=== PATIENT | female | born 1970 | race Caucasian/White ===

== ENCOUNTER → 2017-06-01 15:12 | Outpatient (CLI) | payer OTHER, SELFPAY ==
--- NOTE | 2017-06-01 15:15 | RAD_ITS ---
STUDY: X-RAY - RIGHT ANKLE REASON FOR EXAM: Female, 46 years old. Pain TECHNIQUE: 3 view(s) of the ankle. COMPARISON: 04/21/2017 FINDINGS: Metallic fixation plate and screws are seen within the distal fibula. Normal medial and lateral malleoli. Normal tibiotalar articulation and ankle mortise. There is a plantar calcaneal spur. The visualized subtalar, talonavicular, calcaneocuboid and tarsal articulations are normal. The soft tissue structures are unremarkable. RAD/Ankle min 3 Views IMPRESSION: Postoperative changes to the distal fibula. The orthopedic hardware is intact. Electronically Signed: Maicol Sutherland DO at 14:37 EST Tel , Service support ,
== END ==
PROVIDERS: Family Provider Family Medicine; PCP Family Medicine; Visit Provider Orthopaedic Surgery
DX: M25.571 Pain in right ankle and joints of right foot (principal)
CPT/HCPCS: 73610

== ENCOUNTER 2017-07-04 18:30 | Outpatient (RCR) | payer OTHER, SELFPAY ==
--- NOTE | 2017-06-08 08:46 | HP.PTEVAL ---
Patient's Visit Information NALINI STRANGE is a 46 year old F referred to Physical Therapy by DO MARITZA Rizvi with a diagnosis of Right ORIF ankle. Date of Evaluation: 06/08/17 Physical Therapist: Ariana Burnett - Visit Plan Frequency: 2x /Week Duration: 4 Weeks Plan: ORIF 04/21/17- WBAT- focus on rom and functional mobility - Subjective Subjective: Right ORIF of the ankle 04/21/[address] Floyd 10 days after she fell on the ice. Headed home after surgery with 2 story house- had a hard time getting around but is much better now. She is able to do the stairs one at a time. 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 Is back to driving. Was allowed to start walking a week ago without the boot- without since Tuesday. It hurts- but its more muscle tightness- dull and achy. Worst: 09/11 Agg: walking on it Eases: sitting, taking the pressure off Best: 04/13. Pain is located on the outside of the ankle- no radiating pain. No N/T in the toes. Sleep: not disturbed. Wears dress shoes or tennis shoes- no insert or orthotic. PMHx: HTN, DM. Meds: insulin, losartin, amlodopine. - Objective Posture: FH, RS. Gait: antalgic- decreased stance on the right LE- poor heel/toe strike secondary to decreased ROM. Stairs: asc/desc 8 non recip with 2 HR. Balance: WS but unable to SLS. HR/TR: HR- unable standing but can perform sitting, TR: able. Observation: moderate swelling around the lateral malleolus- mild redness along incision- no drainage or streaks (educated about infectioin- pt to call MD). ROM: DF: neutral, PF: 30 degrees, Inv: 10 degrees, Ever: 5 degrees pain with all motions. Strength: Ankle: 4-/5 in available range - Goals Goal 1:: Patient will be I with HEP and progression Goal Time Frame: 4-6 Weeks Goal 2:: Patient will ambulate >300 feet with a normalized gait pattern Goal Time Frame: 4-6 Weeks Goal 3:: Patient will demo full AROM of the right ankle Goal Time Frame: 4-6 Weeks Goal 4:: Patient will asc/desc 8 stairs recip with 1 HR Goal Time Frame: 4-6 Weeks Goal 5:: Patient will SLS for 10 seconds on the right without LOB - Rehabilitation Potential Physical Therapy Diagnosis: Patient presents with hypomobility- she has decreased ROM, strength and muscualar endurance leading to abnormal gait pattern and inability to perform ADL's. Rehabilitation Potential: Good - Anticipated Interventions Patient/Client Instruction: Educate patient on: Benefits of Fitness Program For the Purpose of:: To improve performance and independence with ADL's Therapeutic Exercise to Include: Strength training, Endurance training, Balance training, Body mechanics, Postural training, Flexibilty training, Gait and locomotor training, Passive ROM, Active ROM For the Purpose of:: To improve muscle performance and motor function Functional Training to Include: Gait training TENS: Yes Cryotherapy (ice pack, ice massage): Yes Thermo therapy (hot pack): Yes Ultrasound (thermal/non thermal): No Vasopneumatic device: Yes For the Purpose of:: To decrease pain, To decrease swelling/inflammation Thank you for the opportunity to evaluate your patient. For Medicare and Medicare HMO plans, please review the plan of care and approve it. It will need to be FAXED BACK to us at [phone] for Medicare purposes. Please let me know if there are questions or concerns regarding this plan of care. Physician Signature: Date:
--- NOTE | 2017-08-22 14:04 | HP.PT.NRP ---
HP - Discharge Summary (1) - Patient Information NALINI STRANGE was seen in my office for initial evaluation on 06/08/17. The following Plan of Care was established for this patient: Initial Frequency: 2x /Week Initial Duration: 4 Weeks - Anticipated Interventions Patient/Client Instruction: Educate patient on: Benefits of Fitness Program For the Purpose of:: To improve performance and independence with ADL's Therapeutic Exercise to Include: Strength training, Endurance training, Balance training, Body mechanics, Postural training, Flexibilty training, Gait and locomotor training, Passive ROM, Active ROM For the Purpose of:: To improve muscle performance and motor function Functional Training to Include: Gait training TENS: Yes Cryotherapy (ice pack, ice massage): Yes Thermo therapy (hot pack): Yes Ultrasound (thermal/non thermal): No Vasopneumatic device: Yes For the Purpose of:: To decrease pain, To decrease swelling/inflammation This patient was last seen in our office . Pertinent comments regarding their Physical therapy will appear below: Patient has not returned for 30 days and is appropriate for discharge. Return to MD for further evaluation as needed. At this point I will be discontinuing this patient from physical therapy. I would be happy to see this patient again in the future if found appropriate by the physician. Thank you! Ariana Burnett
== END 2017-07-04 19:00 | disposition home or self-care (01) ==
LOC: PT 18:30
PROVIDERS: Family Provider Family Medicine; PCP Family Medicine; Visit Provider Orthopaedic Surgery
DX: Z98.890 Other specified postprocedural states (principal)
CPT/HCPCS: 97016; 97110; 97161

== ENCOUNTER 2021-07-31 09:08 | Emergency (ER) | payer BC, SELFPAY ==
[2021-07-31 09:09] VITALS: BP 165/102; PULSE 146; RESP 18; TEMP 36.6; O2SAT 99; BMI 43.9
--- NOTE | 2021-07-31 09:13 | EX.ED.DYSGE1 ---
HPI <RICHARD Larry - Last Filed: 07/31/21 11:06> History of Present Illness Chief Complaint: GI Bleed Narrative Narrative: 50 year old female with PMH of HTN, DM2 presents with abdominal pain and bloody diarrhea that started last night. She has cramping pain mainly in the left lower quadrant and has had multiple episodes of blood and mucus approximately every 3 hours starting around midnight last night. It is mainly watery blood without significant stool. She has nausea but no vomiting. No fever, chills, dizziness or lightheadedness. Denies sick contacts. She has no history of GI bleed and does not take aspirin or blood thinners. Abdominal surgical history includes hysterectomy. She has never had a colonoscopy and also does report some intermittent dysphagia with solids or pills that has not been evaluated. PFSH <RICHARD Larry - Last Filed: 07/31/21 11:06> [facility] Medical History (Updated 07/31/21 @ 11:05 by RICHARD Larry) Diabetes Hypertension Scalp cyst Home Medications amlodipine 10 mg PO DAILY 05/27/16 [History Last Taken 05/28/16 07:00] insulin glargine 50 unit SQ QHS 05/27/16 [History Last Taken Unknown] insulin lispro 25 - 30 unit SQ TID 05/27/16 [History Last Taken Unknown] losartan 100 mg PO DAILY 05/27/16 [History Last Taken 05/28/16 07:00] chlorthalidone 25 mg PO DAILY 07/31/21 [History Last Taken Unknown] diltiazem HCl 180 mg PO DAILY 07/31/21 [History Last Taken Unknown] dulaglutide [Trulicity] 3 mg SUBCUT QWEEK 07/31/21 [History Last Taken Unknown] lamotrigine 100 mg PO DAILY 07/31/21 [History Last Taken Unknown] metformin 500 mg PO DAILY 07/31/21 [History Last Taken Unknown] spironolactone 25 mg PO DAILY 07/31/21 [History Last Taken Unknown] Allergy/AdvReac Type Severity Reaction Status Date / Time hydrocodone [From Vicodin] AdvReac Other Verified 07/31/21 09:12 lisinopril AdvReac Other Verified 07/31/21 09:12 Surgical History history excision scalp cyst (~10/09/19) right ankle orif Social History (Updated 10/16/19 @ 11:52 by Charlotte RAMOS PA-C) Smoking Status: Never smoker ROS <RICHARD Larry - Last Filed: 07/31/21 11:06> ROS ED ROS Narrative Constitutional: Negative for fever, chills, malaise. Eyes: Negative for visual change. ENT: Negative for sore throat, ear pain, rhinorrhea. CVS: Negative for palpitations, chest pain, syncope. Respiratory: Negative for shortness of breath, cough, orthopnea. GI: Positive for abdominal pain, diarrhea, rectal bleeding. Negative for nausea, vomiting, constipation, melena. : Negative for dysuria, hematuria or frequency. Neuro: Negative for headache, motor/sensory dysfunction. Skin: Negative for rash, abscess, or wound. Musc: Negative for joint pain, swelling, trauma. Heme: Negative for easy bruising, bleeding, lymphadenopathy. EXAM <RICHARD Larry - Last Filed: 07/31/21 11:06> Physical Exam Narrative Exam Narrative: CONST: Patient sitting in no acute distress. EYES: Normal inspection. ENT: Normal inspection, moist mucous membranes. NECK: Normal inspection. RESP: No respiratory distress, CTAB. CVS: Regular rate and rhythm, no murmur, no gallop. ABD: Soft with tenderness in left lower quadrant, no guarding or rebound, nondistended. Back: Normal inspection, no CVA tenderness. SKIN: Color normal, no rash, warm, dry, intact. EXTREMITIES: Normal appearance, no pedal edema. NEURO: Oriented x4. PSYCH: Normal affect. Const Vital Signs: 07/31/21 09:09 07/31/21 09:30 Temperature 97.9 F Temperature Source Temporal Pulse Rate 146 H 137 H Respiratory Rate 18 Blood Pressure 165/102 H Blood Pressure Mean 123 Pulse Ox 99 97 Oxygen Delivery Method Room Air Room Air <Dr. Raul Mckinney MD - Last Filed: 07/31/21 11:14> Physical Exam Const Vital Signs: 07/31/21 09:09 07/31/21 09:30 Temperature 97.9 F Temperature Source Temporal Pulse Rate 146 H 137 H Respiratory Rate 18 Blood Pressure 165/102 H Blood Pressure Mean 123 Pulse Ox 99 97 Oxygen Delivery Method Room Air Room Air MDM <RICHARD Larry - Last Filed: 07/31/21 11:06> [facility] Lab Data Labs: Laboratory Results - last 24 hr 07/31/21 07/31/21 07/31/21 09:37 09:37 09:37 WBC 10.5 RBC 5.20 Hgb 15.5 H Hct 44.7 MCV 86.0 MCH 29.8 MCHC 34.7 RDW Std Deviation 38.3 RDW Coeff of Ana 12.1 Plt Count 411 MPV 9.1 Immature Gran % (Auto) 0.600 Neut % (Auto) 76.8 H Lymph % (Auto) 14.5 L Preble % (Auto) 5.9 Eos % (Auto) 1.7 Baso % (Auto) 0.5 Absolute Neuts (auto) 8.1 H Absolute Lymphs (auto) 1.52 Nucleated RBC % 0 PT INR Sodium 135 L Potassium 4.3 Chloride 103 Carbon Dioxide 23.0 Anion Gap 9 BUN 18 Creatinine 1.24 H Estim Creat Clear Calc 42.45 Est GFR (MDRD) Af Amer 59 L Est GFR (MDRD) Non-Af 48 L BUN/Creatinine Ratio 14.5 Glucose 306 H Calcium 8.8 Blood Type O POSITIVE Antibody Screen NEGATIVE 07/31/21 09:37 WBC RBC Hgb Hct MCV MCH MCHC RDW Std Deviation RDW Coeff of Ana Plt Count MPV Immature Gran % (Auto) Neut % (Auto) Lymph % (Auto) Preble % (Auto) Eos % (Auto) Baso % (Auto) Absolute Neuts (auto) Absolute Lymphs (auto) Nucleated RBC % PT 12.6 INR 1.0 Sodium Potassium Chloride Carbon Dioxide Anion Gap BUN Creatinine Estim Creat Clear Calc Est GFR (MDRD) Af Amer Est GFR (MDRD) Non-Af BUN/Creatinine Ratio Glucose Calcium Blood Type Antibody Screen Radiography Diagnostic Testing: Clinical Impression(s) from Imaging Studies Abdomen/Pelvis CT 07/31/21 09:26 IMPRESSION: Soft tissue density subcutaneous fat overlying the lower right anterior abdominal wall. A focal area of ecchymosis should be ruled out. Electronically Signed: Ranulfo Betancur MD at 10:51 EDT , Treatment and Re-Evaluation Narrative: Patient presents with left lower quadrant abdominal pain and bloody diarrhea. She appears well and nontoxic. BP 165/102, heart rate in the 130s, otherwise normal. Examination remarkable for tenderness in the left lower quadrant with no peritoneal signs. Rectal exam had no stool in the vault and no evidence of blood. There was no sample that could be tested for Hemoccult but she did show me pictures on her phone that were grossly bright red blood. Hemoglobin is normal at 15.5. BMP only remarkable for slightly elevated creatinine at 1.24 and glucose of 306. She normally runs in the 200?300s with her diabetes. CT of the abdomen/pelvis shows normal colon and no acute process. It noted a soft tissue density in the fat of the right lower abdominal wall but there is no correlation here clinically. After IV fluids and analgesia patient's vital signs improved. At this time she is stable for outpatient follow-up with GI but was counseled to return for worsening abdominal pain, bleeding, lightheadedness etc. She also had relayed a few week history of a foreign body sensation in her throat and should follow-up with her ENT physician for this. Patient was discharged in stable condition Diagnoses 1. Foreign body sensation in throat 2. Rectal bleeding 3. Abdominal pain 4. Diabetic hyperglycemia <Dr. Raul Mckinney MD - Last Filed: 07/31/21 11:14> [facility] Narrative Medical decision making narrative: Seen and evaluated independently and in conjunction with physician assistant to the ceo. Agree with notes above unless documented otherwise. Patient with foreign body sensation in throat since swallowing something about a month ago, has not been able to see a specialist for that yet. Able to swallow everything okay however. Will be referred to ENT, she is a patient of the practice here and should be able to get in within a reasonable period of time to potentially be evaluated and have a nasal scope in the office. With regards to her abdomen, she was having some mucousy hematochezia in addition to off-and-on crampy abdominal pain she has had for a month but worse in the past day or 2 in the left lower quadrant. On exam, she has no stridor or respiratory distress. No coughing or choking. Mildly tender left lower quadrant. CT findings as discussed with the patient, essentially normal negative. She is to follow-up with GI maybe have a colonoscopy as result of this, inflammatory bowel disease in the differential diagnosis, as are colon polyps/cancer. Patient comfortable with this overall plan. No signs of diverticulitis today require antibiotics at this time. Lab Data Attestation: I reviewed the patient's lab results. Labs: Laboratory Results - last 24 hr 07/31/21 07/31/21 07/31/21 09:37 09:37 09:37 WBC 10.5 RBC 5.20 Hgb 15.5 H Hct 44.7 MCV 86.0 MCH 29.8 MCHC 34.7 RDW Std Deviation 38.3 RDW Coeff of Ana 12.1 Plt Count 411 MPV 9.1 Immature Gran % (Auto) 0.600 Neut % (Auto) 76.8 H Lymph % (Auto) 14.5 L Preble % (Auto) 5.9 Eos % (Auto) 1.7 Baso % (Auto) 0.5 Absolute Neuts (auto) 8.1 H Absolute Lymphs (auto) 1.52 Nucleated RBC % 0 PT INR Sodium 135 L Potassium 4.3 Chloride 103 Carbon Dioxide 23.0 Anion Gap 9 BUN 18 Creatinine 1.24 H Estim Creat Clear Calc 42.45 Est GFR (MDRD) Af Amer 59 L Est GFR (MDRD) Non-Af 48 L BUN/Creatinine Ratio 14.5 Glucose 306 H Calcium 8.8 Blood Type O POSITIVE Antibody Screen NEGATIVE 07/31/21 09:37 WBC RBC Hgb Hct MCV MCH MCHC RDW Std Deviation RDW Coeff of Ana Plt Count MPV Immature Gran % (Auto) Neut % (Auto) Lymph % (Auto) Preble % (Auto) Eos % (Auto) Baso % (Auto) Absolute Neuts (auto) Absolute Lymphs (auto) Nucleated RBC % PT 12.6 INR 1.0 Sodium Potassium Chloride Carbon Dioxide Anion Gap BUN Creatinine Estim Creat Clear Calc Est GFR (MDRD) Af Amer Est GFR (MDRD) Non-Af BUN/Creatinine Ratio Glucose Calcium Blood Type Antibody Screen Radiography Diagnostic Testing: Clinical Impression(s) from Imaging Studies Abdomen/Pelvis CT 07/31/21 09:26 IMPRESSION: Soft tissue density subcutaneous fat overlying the lower right anterior abdominal wall. A focal area of ecchymosis should be ruled out. Electronically Signed: Ranulfo Betancur MD at 10:51 EDT , Discharge Plan Triage Chief Complaint: GI Bleed ED Provider: Yakelin Booth Dx/Rx/DC Orders Clinical Impression: Abdominal pain, Bright red rectal bleeding, Diabetes mellitus with hyperglycemia, Feeling of foreign body in throat Instructions: Bleeding Gastrointestinal, Abdominal Pain Prescriptions: No Action insulin glargine 100 UNIT/ML solution 50 unit SQ QHS RF: 0 amlodipine 10 MG tablet 10 mg PO DAILY RF: 0 losartan 100 MG tablet 100 mg PO DAILY RF: 0 insulin lispro 100 UNIT/ML insulin pen 25 - 30 unit SQ TID RF: 0 chlorthalidone 25 mg tablet 25 mg PO DAILY RF: 0 metformin 500 mg Tablet 500 mg PO DAILY RF: 0 diltiazem HCl 180 mg Capsule,Extended Release 24 Hr 180 mg PO DAILY RF: 0 spironolactone 25 mg Tablet 25 mg PO DAILY RF: 0 lamotrigine 25 mg tablet 100 mg PO DAILY RF: 0 Trulicity 1.5 mg/0.5 mL pen injector 3 mg SUBCUT QWEEK RF: 0 Primary Care Provider: Eduardo Dumas Referrals: Bunny Flanagan MD [STAFF PHYSICIAN] - Shay Magdaleno DO [STAFF PHYSICIAN] - Eduardo Dumas MD [Primary Care Provider] - Activity Restrictions/Additional Instructions: Today your blood counts were normal. Your CAT scan also appeared normal with no signs of infection. I provided the phone number for gastroenterology with Dr. Magdaleno. Please call their office and schedule an appointment to be evaluated for your rectal bleeding as he will need a colonoscopy. If your symptoms worsen such as self severe abdominal pain or worsening rectal bleeding or feel dizzy or lightheaded come back to the emergency room. Also please follow-up with the ENT doctor for the foreign body sensation in your throat. Disposition Disposition: Home, Self Care
--- NOTE | 2021-07-31 09:26 | CT_ITS ---
STUDY: CT ABDOMEN AND PELVIS WITH CONTRAST REASON FOR EXAM: Female, 50 years old. Abdominal pain, gi bleed RADIATION DOSAGE (If Supplied By Facility): CTDIvol = ( 15.40 ) mGy, DLP = ( 1285.24 ) mGycm TECHNIQUE: Transaxial images were obtained from the dome of the diaphragm to the symphysis pubis without oral contrast. IV 100mL Isovue-300 was administered. Sagittal and coronal images were reconstructed. Individualized dose optimization techniques were used for this CT. COMPARISON: Comparison is made with prior study dated 10/23/2011. FINDINGS: 1 mm noncalcified nodule in the right middle lobe as seen on axial image #1. The visualized portions of the heart are within normal limits. Normal liver. Normal gallbladder and extrahepatic biliary system. Normal spleen. Normal pancreas. Normal bilateral adrenal glands. Normal right kidney. Normal left kidney. Fluid-filled stomach. Normal small intestine. Normal colon. The appendix is visualized and appears normal. There is scattered atherosclerotic calcification of the abdominal aorta, without a demonstrated aneurysm. Normal inferior vena cava. There is borderline retroperitoneal lymphadenopathy with enlarged nodes no greater than 10mm in the short axis diameter. Normal urinary bladder. There is absence of the uterus consistent with a prior hysterectomy. There is a 4.9 cm x 5.4 cm x 2.3 cm soft tissue density in the subcutaneous fat overlying the lower anterior abdominal wall on the right side. This may represent an area of ecchymosis. Clinical correlation is recommended. There are degenerative changes of the visualized lumbar spine. CT/Abdomen/Pelvis W IV Cont ONLY IMPRESSION: Soft tissue density subcutaneous fat overlying the lower right anterior abdominal wall. A focal area of ecchymosis should be ruled out. Electronically Signed: Ranulfo Betancur MD at 10:51 EDT ,
[2021-07-31 09:30] VITALS: PULSE 137; O2SAT 97
[2021-07-31] MEDS: 0.9% Normal Saline 1,000 ML 999 ML IV (09:40)
[2021-07-31 09:57] LABS: Absolute Lymphocyte Count 1.52 X10^3/uL (0.83-4.51); Absolute Neutrophil Count 8.1 X10^3/uL (2.0-7.7); Basophil# 0.05 X10^3/uL; Basophil% 0.5 % (0-1); Eosinophil# 0.18 X10^3/uL; Eosinophils% 1.7 % (0-5); Hematocrit 44.7 % (37-47); Hemoglobin 15.5 g/dL (12.0-15.0); Lymphocyte # 1.52 X10^3/ul (0.83-4.51); Lymphocyte % 14.5 % (19-41); Mean Corp Hgb Conc 34.7 g/dL (32-36); Mean Corpuscular Hgb 29.8 pg (27.0-32.0); Mean Platelet Vol. 9.1 fl (6.2-12.0); Monocyte# 0.62 X10^3/uL; Monocyte% 5.9 % (0-10); NRBC Flagged by Analyzer 0 % (0-5); Neutrophil # 8.08 X10^3/uL (2.7-7.7); Neutrophil % 76.8 % (47-70); Platelet Count 411 K/mm3 (150-450); RBC Distribution Width CV 12.1 % (11.6-14.6); RBC Distribution Width SD 38.3 fl (35.1-43.9); White Blood Count 10.5 K/mm3 (4.4-11.0)
[2021-07-31 10:06] LABS: Prothrombin Time (Protime)PT. 12.6 SECONDS (11.7-14.9)
[2021-07-31] MEDS: Morphine 4 MG/ML Syringe IV (10:07)
[2021-07-31] MEDS: Ondansetron 4 MG/2 ML Vial IV (10:07)
[2021-07-31 10:10] LABS: Anion Gap 9 (5-15); BUN 18 mg/dL (7-18); BUN/Creat Ratio 14.5 RATIO (10-20); Calcium,Total 8.8 mg/dL (8.5-10.1); Chloride 103 mmol/L (98-107); Creatinine, Serum 1.24 mg/dL (0.55-1.02); EST Glomerular Filtration Rate 48 mL/min (>60); Est Glom Filt Rate - Afr Amer 59 mL/min (>60); Estimated Creatinine Clearance 42.45 ml/min; Glucose 306 mg/dL (74-106); Potassium 4.3 mmol/L (3.5-5.1); Sodium Level 135 mmol/L (136-145)
[2021-07-31 11:25] VITALS: RESP 16
== END 2021-07-31 11:25 | disposition home or self-care (01) ==
PROVIDERS: Emergency Provider Physician Assistant; PCP Internal Medicine; Visit Provider Physician Assistant
DX: R09.89 Other specified symptoms and signs involving the circulatory and respiratory systems (principal); E11.65 Type 2 diabetes mellitus with hyperglycemia; Z79.4 Long term (current) use of insulin; K92.2 Gastrointestinal hemorrhage, unspecified; I10 Essential (primary) hypertension; Z79.899 Other long term (current) drug therapy; Z79.84 Long term (current) use of oral hypoglycemic drugs
CPT/HCPCS: 74177; 80048; 85025; 85610; 86850; 86900; 86901; 96374; 96375; 99282; J7030; Q9967; J2405